=== PATIENT | male | born 1930 | race Two or more races ===

== ENCOUNTER → 2016-04-13 | Outpatient (CLI) | payer OTHER ==
[~2016-04-13] MED LIST: ALEN70TA55 PO; ASPI-231 PO; CHOL20002 PO; GEM600T OR; IBUP800T24 PO; MAGN500T17 PO; MULT-212 OR; MULT-281 OR; OXYB5TAB62 PO; [UNRECOGNIZED DRUG - CODE] PO
[2016-04-13 10:46] LABS: Urine RBC None Seen /hpf (0 - 3)
[2016-04-13 10:56] LABS: Basophils # (auto) 0 uL; Basophils % (auto) 0.9 % (0.0-2.0); Eosinophils # (auto) 0.2 uL; Eosinophils % (auto) 3.1 % (0.0-7.0); Hemoglobin 14.2 g/dL (13.5-17.5); Lymphocytes # (auto) 1.1 uL; Lymphocytes % (auto) 20.8 % (10.0-50.0); Mean Corpuscular Hemoglobin 28.8 pg (28.0-32.0); Mean Corpuscular Hgb Conc. 32.2 g/dL (32.0-36.0); Mean Corpuscular Volume 89.4 fL (80.0-100.0); Mean Platelet Volume 9.3 fL (7.4-10.4); Monocytes # (auto) 0.4 uL; Monocytes % (auto) 8.1 % (0.0-12.0); Neutrophils # (auto) 3.6 uL; Neutrophils % (auto) 67.1 % (37.0-80.0); Platelet Count (auto) 201 10^3/uL (140-450); White Blood Cell 5.3 10^3/uL (4.4-10.8)
[2016-04-13 11:38] LABS: Urine Bilirubin Negative (Negative); Urine Blood Negative /uL (Negative); Urine Color Yellow (Yellow); Urine Glucose Normal (Normal); Urine Hyaline Cast FEW /lpf (0 - 2); Urine Ketone Negative (Negative); Urine Mucus FEW (None Seen); Urine Nitrite Negative (Negative); Urine Squamous Epithelial Cell FEW /hpf (<5); Urine Urobilinogen Normal (Negative); Urine pH 5.5 (5.0-8.0)
[2016-04-13 11:40] LABS: Albumin 4.2 g/dL (3.4-5.0); BUN/Creatinine Ratio 17.9; Bilirubin, Total 0.7 mg/dL (0.2-1.0); Calcium 9.4 mg/dL (8.5-10.1); Potassium 4.7 mmol/L (3.5-5.1); Total Protein 7.4 g/dL (6.4-8.2)
== END | disposition home or self-care (01) ==
LOC: LAB 10:04
DX: E55.9 Vitamin D deficiency, unspecified (principal); E78.5 Hyperlipidemia, unspecified; E73.9 Lactose intolerance, unspecified
CPT/HCPCS: 36415; 80053; 80061; 81001; 82306; 83036; 84443; 85025

== ENCOUNTER → 2016-11-05 | Outpatient (CLI) | payer OTHER ==
[2016-11-05 10:13] LABS: Urine RBC None Seen /hpf (0 - 3)
[2016-11-05 10:39] LABS: Basophils # (auto) 0.1 uL; Eosinophils # (auto) 0.1 uL; Eosinophils % (auto) 3.1 % (0.0-7.0); Hematocrit 42.8 % (41.0-53.0); Hemoglobin 14.2 g/dL (13.5-17.5); Lymphocytes % (auto) 26.3 % (10.0-50.0); Mean Corpuscular Hemoglobin 29.4 pg (28.0-32.0); Mean Corpuscular Hgb Conc. 33.3 g/dL (32.0-36.0); Mean Corpuscular Volume 88.3 fL (80.0-100.0); Mean Platelet Volume 9.1 fL (7.4-10.4); Monocytes # (auto) 0.4 uL; Monocytes % (auto) 10.1 % (0.0-12.0); Neutrophils # (auto) 2.2 uL; Neutrophils % (auto) 58.5 % (37.0-80.0); Platelet Count (auto) 155 10^3/uL (140-450); Red Cell Distribution Width 14.9 % (11.6-16.0); White Blood Cell 3.8 10^3/uL (4.4-10.8)
[2016-11-05 10:49] LABS: Urine Bilirubin Negative (Negative); Urine Blood Negative /uL (Negative); Urine Color Yellow (Yellow); Urine Glucose Normal (Normal); Urine Ketone Negative (Negative); Urine Mucus FEW (None Seen); Urine Nitrite Negative (Negative); Urine Squamous Epithelial Cell FEW /hpf (<5); Urine pH 5.5 (5.0-8.0)
[2016-11-05 11:10] LABS: Albumin 3.8 g/dL (3.4-5.0); BUN/Creatinine Ratio 15.6; Bilirubin, Total 0.8 mg/dL (0.2-1.0); Calcium 9.1 mg/dL (8.5-10.1); Potassium 4.1 mmol/L (3.5-5.1)
[2016-11-08 10:00] LABS: Hepatitis B Surface Antibody Negative
== END | disposition home or self-care (01) ==
LOC: LAB 09:56
PROVIDERS: ATTEND Family Medicine
DX: Z11.59 Encounter for screening for other viral diseases (principal); E78.5 Hyperlipidemia, unspecified; E55.9 Vitamin D deficiency, unspecified
CPT/HCPCS: 36415; 80053; 80061; 81001; 82306; 84443; 85025; 86704; 86706; 86708; 86803; 87340

== ENCOUNTER 2017-01-10 09:08 | Day surgery (SDC) | payer OTHER ==
[2017-01-06 10:32] LABS: Basophils # (auto) 0.1 uL; Basophils % (auto) 1.8 % (0.0-2.0); Eosinophils # (auto) 0.1 uL; Eosinophils % (auto) 2.2 % (0.0-7.0); Hematocrit 46.8 % (41.0-53.0); Hemoglobin 15.7 g/dL (13.5-17.5); Lymphocytes # (auto) 1.3 uL; Lymphocytes % (auto) 23.6 % (10.0-50.0); Mean Corpuscular Hemoglobin 29.9 pg (28.0-32.0); Mean Corpuscular Hgb Conc. 33.5 g/dL (32.0-36.0); Mean Corpuscular Volume 89.3 fL (80.0-100.0); Mean Platelet Volume 8.5 fL (6.9-10.8); Monocytes # (auto) 0.4 uL; Monocytes % (auto) 8.2 % (0.0-12.0); Neutrophils # (auto) 3.5 uL; Neutrophils % (auto) 64.2 % (37.0-80.0); Platelet Count (auto) 143 10^3/uL (140-450); Red Cell Distribution Width 14.1 % (11.8-14.3); White Blood Cell 5.4 10^3/uL (4.4-10.8)
[2017-01-06 10:36] LABS: INR 1.03 (0.9-1.15); Partial Thromboplastin Time 26.1 sec (22.64-33.71); Prothrombin Time 11.2 sec (9.37-12.3)
[~2017-01-10] VITALS: Ht 162.6 cm; Wt 81.6 kg
[~2017-01-10 09:08] MED LIST changes: -GEM600T OR; -MAGN500T17 PO; +TRAZ50TA2 PO
[2017-01-10] MEDS ORDERED: SODIUM CHLORIDE LOCK 10 ML ONE (09:10)
[2017-01-10] MEDS ORDERED: LIDOCAINE VISCOUS 2% 15ML UD ONE (09:10)
[2017-01-10] MEDS ORDERED: diphenhdrAMINE HCL 50 MG/1 ML VL ONE (09:11)
[2017-01-10] MEDS: MIDAZOLAM HCL 5 MG/ML-1ML VIAL ONE ×2 (10:33→10:36)
[2017-01-10] MEDS: fentaNYL CITRATE 100 MCG/2 ML VL ONE ×2 (10:33→10:36)
[2017-01-10 11:41] VITALS: BP 126/81
== END 2017-01-10 11:42 | disposition home or self-care (01) ==
LOC: GI 09:08
PROVIDERS: ATTEND Internal Medicine Gastroenterology
DX: K44.9 Diaphragmatic hernia without obstruction or gangrene (principal); Z88.5 Allergy status to narcotic agent; E66.9 Obesity, unspecified; Z68.30 Body mass index [BMI] 30.0-30.9, adult; Z90.49 Acquired absence of other specified parts of digestive tract; D69.6 Thrombocytopenia, unspecified
CPT/HCPCS: 36415; 43248; 85025; 85610; 85730; J2250; J3010; J7030

== ENCOUNTER → 2017-01-19 | Outpatient (CLI) | payer OTHER | END | disposition home or self-care (01) | LOC: LAB 10:48 | PROVIDERS: ATTEND Family Medicine | DX: F03.90 Unspecified dementia, unspecified severity, without behavioral disturbance, psychotic disturbance, mood disturbance, and anxiety (principal); R19.7 Diarrhea, unspecified | CPT/HCPCS: 36415; 84443 ==

== ENCOUNTER 2017-03-14 08:24 | Day surgery (SDC) | payer OTHER ==
[2017-03-10 10:03] LABS: Basophils # (auto) 0.1 uL; Basophils % (auto) 1.1 % (0.0-2.0); Eosinophils # (auto) 0.2 uL; Eosinophils % (auto) 2.6 % (0.0-7.0); Hemoglobin 15.7 g/dL (13.5-17.5); Lymphocytes # (auto) 1.3 uL; Lymphocytes % (auto) 18.3 % (10.0-50.0); Mean Corpuscular Hemoglobin 29.3 pg (28.0-32.0); Mean Corpuscular Hgb Conc. 33.4 g/dL (32.0-36.0); Mean Corpuscular Volume 87.7 fL (80.0-100.0); Monocytes # (auto) 0.5 uL; Monocytes % (auto) 7.2 % (0.0-12.0); Neutrophils # (auto) 4.9 uL; Neutrophils % (auto) 70.8 % (37.0-80.0); Platelet Count (auto) 162 10^3/uL (140-450); Red Blood Cells 5.35 10^6/uL (4.5-5.90); White Blood Cell 6.9 10^3/uL (4.4-10.8)
[2017-03-10 10:13] LABS: INR 0.98 (0.9-1.15); Prothrombin Time 10.7 sec (9.37-12.3)
[~2017-03-14] VITALS: Ht 160 cm; Wt 86.2 kg
[2017-03-14] MEDS ORDERED: SODIUM CHLORIDE LOCK 10 ML ONE (08:48)
[2017-03-14] MEDS ORDERED: diphenhdrAMINE HCL 50 MG/1 ML VL ONE (08:49)
[2017-03-14] MEDS ORDERED: fentaNYL CITRATE 100 MCG/2 ML VL ONE (08:49)
[2017-03-14] MEDS ORDERED: MIDAZOLAM HCL 5 MG/ML-1ML VIAL ONE (08:49)
[2017-03-14 10:55] VITALS: BP 149/89
== END 2017-03-14 11:05 | disposition home or self-care (01) ==
LOC: GI 08:24
PROVIDERS: ATTEND Internal Medicine Gastroenterology
DX: K64.8 Other hemorrhoids (principal); K57.30 Diverticulosis of large intestine without perforation or abscess without bleeding; Z88.5 Allergy status to narcotic agent; E66.9 Obesity, unspecified; Z68.33 Body mass index [BMI] 33.0-33.9, adult; Z90.49 Acquired absence of other specified parts of digestive tract
CPT/HCPCS: 36415; 45380; 85025; 85610; 88305; J2250; J3010; J7030; 99152

== ENCOUNTER 2017-04-06 13:41 | Emergency (ER) | payer OTHER ==
[~2017-04-06] VITALS: Ht 160 cm; Wt 89.4 kg
[2017-04-06 16:30] VITALS: BP 132/82
== END 2017-04-06 16:52 | disposition home or self-care (01) ==
LOC: ER 13:41
DX: M79.671 Pain in right foot (principal); M79.89 Other specified soft tissue disorders; I10 Essential (primary) hypertension; Z88.6 Allergy status to analgesic agent; Z79.899 Other long term (current) drug therapy
CPT/HCPCS: 93971

== ENCOUNTER → 2017-04-19 | Outpatient (CLI) | payer OTHER ==
[2017-04-19 11:37] LABS: Albumin 3.5 g/dL (3.4-5.0); Bilirubin, Total 0.7 mg/dL (0.2-1.0); Calcium 8.6 mg/dL (8.5-10.1); Total Protein 6.8 g/dL (6.4-8.2); Uric Acid 7.1 mg/dL (3.5-7.2)
== END | disposition home or self-care (01) ==
LOC: LAB 11:00
PROVIDERS: ATTEND Family Medicine
DX: M10.071 Idiopathic gout, right ankle and foot (principal)
CPT/HCPCS: 36415; 80053; 84550

== ENCOUNTER → 2017-06-23 | Outpatient (CLI) | payer OTHER ==
[~2017-06-23] MED LIST changes: +BUPIVACAINE 0.25% INJ 50ML VIAL ONE; +LIDOCAINE 2% (LOCAL ANESTH.) PF 5ml SDV ONE; +methylPREDNISolone ACETATE 80 MG/ML VL ONE
== END | disposition home or self-care (01) ==
LOC: XY 10:10
PROVIDERS: ATTEND Orthopaedic Surgery Adult Reconstructive Orthopaedic Surgery
DX: M25.512 Pain in left shoulder (principal); M25.511 Pain in right shoulder; Z88.5 Allergy status to narcotic agent
CPT/HCPCS: 20610; 76000; J1040; J3490

== ENCOUNTER → 2017-08-29 | Outpatient (CLI) | payer OTHER ==
[~2017-08-29] MED LIST changes: -BUPIVACAINE 0.25% INJ 50ML VIAL ONE; -LIDOCAINE 2% (LOCAL ANESTH.) PF 5ml SDV ONE; -methylPREDNISolone ACETATE 80 MG/ML VL ONE
[2017-08-29 13:46] LABS: Free T3 2.91 pg/mL (2.3-4.2); Free T4 (Free Thyroxine) 0.98 ng/dL (0.89-1.76); T3 Total 1.06 ng/mL (0.60-1.81)
== END | disposition home or self-care (01) ==
LOC: LAB 11:38
PROVIDERS: ATTEND Family Medicine
DX: I10 Essential (primary) hypertension (principal); R94.6 Abnormal results of thyroid function studies; R93.8 Abnormal findings on diagnostic imaging of other specified body structures; E78.5 Hyperlipidemia, unspecified; Z79.899 Other long term (current) drug therapy
CPT/HCPCS: 36415; 84439; 84443; 84480; 84481

== ENCOUNTER → 2017-09-27 | Outpatient (CLI) | payer OTHER ==
[~2017-09-27] VITALS: Ht 167.6 cm; Wt 82.6 kg
[~2017-09-27] MED LIST changes: +ADENOSINE 69 MG in GIVE UN-DILUTED 0 ML IV STA
[2017-09-27 11:08] VITALS: BP 149/99
== END | disposition home or self-care (01) ==
LOC: XY 08:00
PROVIDERS: ATTEND Family Medicine
DX: Z01.818 Encounter for other preprocedural examination (principal); I10 Essential (primary) hypertension
CPT/HCPCS: 78452; 93017; A9500; J0153

== ENCOUNTER 2017-11-11 08:38 | Day surgery (SDC) | payer OTHER ==
[2017-11-08 12:45] LABS: Basophils # (auto) 0.1 uL; Basophils % (auto) 1.2 % (0.0-2.0); Eosinophils # (auto) 0.1 uL; Eosinophils % (auto) 2.4 % (0.0-7.0); Hematocrit 47.4 % (41.0-53.0); Hemoglobin 15.6 g/dL (13.5-17.5); Lymphocytes # (auto) 1.5 uL; Lymphocytes % (auto) 25.3 % (10.0-50.0); Mean Corpuscular Hemoglobin 30.2 pg (28.0-32.0); Mean Corpuscular Volume 91.5 fL (80.0-100.0); Monocytes # (auto) 0.6 uL; Monocytes % (auto) 9.3 % (0.0-12.0); Neutrophils # (auto) 3.7 uL; Neutrophils % (auto) 61.8 % (37.0-80.0); Platelet Count (auto) 126 10^3/uL (140-450); Red Blood Cells 5.18 10^6/uL (4.5-5.90); Red Cell Distribution Width 15.9 % (11.8-14.3)
[2017-11-08 12:59] LABS: Partial Thromboplastin Time 25.9 sec (23.78-33.04); Prothrombin Time 10.7 sec (9.27-12.13)
[~2017-11-11] VITALS: Ht 160 cm; Wt 86.2 kg
[~2017-11-11 08:38] MED LIST changes: -ADENOSINE 69 MG in GIVE UN-DILUTED 0 ML IV STA; +ALEN1TAB32 PO; -ALEN70TA55 PO; -IBUP800T24 PO; +OXYB5TAB24 PO; -OXYB5TAB62 PO
[2017-11-11] MEDS ORDERED: diphenhdrAMINE HCL 50 MG/1 ML VL ONE (09:24)
[2017-11-11] MEDS: fentaNYL CITRATE 100 MCG/2 ML VL ONE ×2 (09:47→09:51)
[2017-11-11] MEDS: MIDAZOLAM HCL 5 MG/ML-1ML VIAL ONE ×2 (09:47→09:51)
[2017-11-11 10:27] VITALS: BP 133/93
== END 2017-11-11 10:40 | disposition home or self-care (01) ==
LOC: GI 08:38
PROVIDERS: ATTEND Internal Medicine Gastroenterology
DX: R13.10 Dysphagia, unspecified (principal); E78.5 Hyperlipidemia, unspecified; E66.9 Obesity, unspecified; M17.10 Unilateral primary osteoarthritis, unspecified knee; Z90.49 Acquired absence of other specified parts of digestive tract; Z88.5 Allergy status to narcotic agent; Z98.890 Other specified postprocedural states; Z80.8 Family history of malignant neoplasm of other organs or systems; Z79.899 Other long term (current) drug therapy; Z79.82 Long term (current) use of aspirin
CPT/HCPCS: 36415; 43248; 85025; 85610; 85730; A6257; J2250; J3010; J7030

== ENCOUNTER 2017-11-28 06:13 | Inpatient (IN) | payer OTHER ==
[2017-11-08 12:43] LABS: Basophils # (auto) 0.1 uL; Basophils % (auto) 1.3 % (0.0-2.0); Eosinophils # (auto) 0.1 uL; Eosinophils % (auto) 2.3 % (0.0-7.0); Hematocrit 47.2 % (41.0-53.0); Hemoglobin 15.7 g/dL (13.5-17.5); Lymphocytes # (auto) 1.6 uL; Lymphocytes % (auto) 26.1 % (10.0-50.0); Mean Corpuscular Hemoglobin 30.7 pg (28.0-32.0); Mean Corpuscular Hgb Conc. 33.3 g/dL (32.0-36.0); Mean Corpuscular Volume 92.1 fL (80.0-100.0); Monocytes # (auto) 0.6 uL; Monocytes % (auto) 9.1 % (0.0-12.0); Neutrophils # (auto) 3.8 uL; Neutrophils % (auto) 61.2 % (37.0-80.0); Nucleated Red Blood Cells % 0.1 %; Platelet Count (auto) 126 10^3/uL (140-450); Red Blood Cells 5.12 10^6/uL (4.5-5.90); White Blood Cell 6.2 10^3/uL (4.4-10.8)
[2017-11-08 13:04] LABS: Prothrombin Time 10.7 sec (9.27-12.13)
[2017-11-08 13:28] LABS: Albumin 3.9 g/dL (3.4-5.0); Calcium 8.5 mg/dL (8.5-10.1); Potassium 3.8 mmol/L (3.5-5.1)
[2017-11-23 12:39] LABS: INR 1.01 (0.9-1.15); Partial Thromboplastin Time 26.2 sec (23.78-33.04); Prothrombin Time 10.8 sec (9.27-12.13)
[2017-11-23 12:46] LABS: Basophils # (auto) 0.1 uL; Basophils % (auto) 1.4 % (0.0-2.0); Eosinophils # (auto) 0.1 uL; Eosinophils % (auto) 2.1 % (0.0-7.0); Hemoglobin 14.9 g/dL (13.5-17.5); Lymphocytes # (auto) 1.3 uL; Lymphocytes % (auto) 23.2 % (10.0-50.0); Mean Corpuscular Hgb Conc. 33.2 g/dL (32.0-36.0); Mean Corpuscular Volume 90.4 fL (80.0-100.0); Monocytes # (auto) 0.5 uL; Monocytes % (auto) 8.5 % (0.0-12.0); Neutrophils # (auto) 3.6 uL; Neutrophils % (auto) 64.8 % (37.0-80.0); Platelet Count (auto) 140 10^3/uL (140-450); Red Blood Cells 4.97 10^6/uL (4.5-5.90); Red Cell Distribution Width 15.5 % (11.8-14.3); White Blood Cell 5.6 10^3/uL (4.4-10.8)
[2017-11-23 12:48] LABS: Urine Bacteria NONE SEEN /hpf (None Seen); Urine Blood Negative /uL (Negative); Urine Mucus FEW (None Seen); Urine WBC 1 /hpf (0 - 3)
[2017-11-23 13:31] LABS: Albumin 3.4 g/dL (3.4-5.0); BUN/Creatinine Ratio 14.6; Bilirubin, Total 0.6 mg/dL (0.2-1.0); Calcium 8.4 mg/dL (8.5-10.1); Potassium 4.2 mmol/L (3.5-5.1); Total Protein 6.3 g/dL (6.4-8.2)
[~2017-11-28] VITALS: Ht 160 cm; Wt 87.5 kg
[2017-11-28] MEDS ORDERED: SUCCINYLCHOLINE CHLORIDE 20 MG/ML 10ML VIAL IV ONE (06:44)
[2017-11-28] MEDS ORDERED: ceFAZolin 1GM/50ML 100 ML IV ONE (06:44)
[2017-11-28] MEDS ORDERED: LIDOCAINE 1% HCL (LOCAL ANESTH.) INJ 20ML MDV ONE (06:44)
[2017-11-28] MEDS ORDERED: PROPOFOL 10 MG/ML 20 ML IV ONE (06:55)
[2017-11-28] MEDS ORDERED: ONDANSETRON HCL 4 MG/2 ML VIAL ONE (06:55)
[2017-11-28] MEDS ORDERED: fentaNYL CITRATE 100 MCG/2 ML VL ONE (06:55)
[2017-11-28] MEDS ORDERED: SODIUM CHLORIDE LOCK 10 ML ONE (06:55)
[2017-11-28] MEDS ORDERED: ROCURONIUM 10MG/ML 10ML VIAL IV ONE (06:55)
[2017-11-28] MEDS ORDERED: ETOMIDATE (2MG/ML) 20ML VIAL IV ONE (06:55)
[2017-11-28] MEDS ORDERED: fentaNYL CITRATE 10 ML ONE (06:55)
[2017-11-28] MEDS ORDERED: MIDAZOLAM HCL 1MG/1ML-2 ML VIAL ONE (06:55)
[2017-11-28] MEDS ORDERED: MEPERIDINE HCL (50 MG/ML) 1 ML VIAL ONE (06:58)
[2017-11-28] MEDS ORDERED: BUPIVACAINE W/ EPINEPH 0.25% INJ 50ML MDV ONE (07:08)
[2017-11-28] MEDS ORDERED: TRANEXAMIC ACID 20 ML ONE (07:08)
[2017-11-28] MEDS ORDERED: KETOROLAC TROMETH 30 MG/ML 1ML VIAL ONE (07:10)
[2017-11-28] MEDS ORDERED: MORPHINE SULF(PF) 0.5MG/ML 10ML VIAL ONE (07:12)
[2017-11-28] MEDS ORDERED: ESMOLOL HCL (10MG/ML) 10 ML VIAL IV ONE (07:20)
[2017-11-28] MEDS ORDERED: GLYCOPYRROLATE 0.2 MG/ML 1ML VIAL ONE (08:27)
[2017-11-28] MEDS ORDERED: NEOSTIGMINE 1 MG/ML INJ (10mg/10ML VIAL) ONE (08:27)
[2017-11-28] MEDS ORDERED: KETOROLAC TROMETH 60MG/2ML VIAL IM ONE (08:27)
[2017-11-28] MEDS ORDERED: METOCLOPRAMIDE HCL 5MG/ml INJ 2ml VIAL IV ONE (09:15)
[2017-11-28] MEDS ORDERED: KETOROLAC TROMETH 30 MG/ML 1ML VIAL IV ONE (09:15)
[2017-11-28] MEDS ORDERED: HYDROmorphone HCL 2 MG/ML VL IV PRN (09:15)
[2017-11-28] MEDS ORDERED: VANCOMYCIN HCL 1000 MG VL ONE ×2 (10:17→10:18)
[2017-11-28] MEDS ORDERED: KETOROLAC TROMETH 30 MG/ML 1ML VIAL IV PRN (11:00)
[2017-11-28] MEDS ORDERED: MORPHINE SULFATE 4 MG/ML SYR/VIAL IV PRN (11:00)
[2017-11-28] MEDS ORDERED: ACETAMINOPHEN 325 MG TAB PO PRN (11:00)
[2017-11-28] MEDS: SODIUM CHLOR 0.9% PF (SALINE LOCK) 10ML VIAL/SYR IV SCH ×2 (15:02→21:43)
[2017-11-28] MEDS: ceFAZolin 1GM/50ML 50 ML IV SCH ×2 (15:12→21:43)
[2017-11-28] MEDS ORDERED: INFLUENZA QUAD 2018-2019 0.5 ML SYRG IM ONE (16:00)
[2017-11-28 17:05] VITALS: BP 119/81
[2017-11-28] MEDS: D5W/LACTATED RINGERS 1,000 ML IV SCH ×2 (17:07→20:48)
[2017-11-28] MEDS: CELECOXIB 100 MG CAP PO SCH (21:44)
[2017-11-28] MEDS: CHOLECALCIFEROL (VITD3) 1,000 UNIT TAB PO SCH (21:44)
[2017-11-28] MEDS: FATTY ACIDS PO SCH (21:45)
[2017-11-28] MEDS: OMEGA PO SCH (21:45)
[2017-11-28 22:00] VITALS: BP 128/93
[2017-11-28] MEDS ORDERED: traZODone HCL 50 MG TAB PO SCH (22:00)
[2017-11-28] MEDS ORDERED: OXYBUTYNIN CHL 5 MG TAB PO SCH (22:00)
[2017-11-28] MEDS ORDERED: OXYBUTYNIN CHLORIDE 5 MG PO SCH (22:00)
[2017-11-28] MEDS ORDERED: PATIENTS OWN MEDICATION (Trazodone Hcl 50 MG) PO SCH (22:00)
[2017-11-28] MEDS ORDERED: PATIENTS OWN MEDICATION (Cholecalciferol (Vitamin D3) 2,000 UNIT) PO SCH (22:00)
[2017-11-29] MEDS: D5W/LACTATED RINGERS 1,000 ML IV SCH (04:14)
[2017-11-29 05:51] VITALS: BP 118/69
[2017-11-29] MEDS: ceFAZolin 1GM/50ML 50 ML IV SCH (06:06)
[2017-11-29] MEDS: SODIUM CHLOR 0.9% PF (SALINE LOCK) 10ML VIAL/SYR IV SCH (06:06)
[2017-11-29 09:00] VITALS: BP 116/68
[2017-11-29] MEDS: FATTY ACIDS PO SCH (10:00)
[2017-11-29] MEDS ORDERED: ASPirin-EC 81 mg tab PO SCH (10:00)
[2017-11-29] MEDS ORDERED: MULTIPLE VITAMINS W/ MINERALS TAB PO SCH ×2 (10:00)
[2017-11-29] MEDS: OMEGA PO SCH (10:00)
[2017-11-29] MEDS: CELECOXIB 100 MG CAP PO SCH (10:10)
[2017-11-29] MEDS: CHOLECALCIFEROL (VITD3) 1,000 UNIT TAB PO SCH (10:11)
[2017-11-29 12:32] LABS: Basophils # (auto) 0 uL; Basophils % (auto) 0.3 % (0.0-2.0); Eosinophils # (auto) 0 uL; Eosinophils % (auto) 0.2 % (0.0-7.0); Hematocrit 39.2 % (41.0-53.0); Hemoglobin 13.1 g/dL (13.5-17.5); Lymphocytes # (auto) 0.9 uL; Lymphocytes % (auto) 8.5 % (10.0-50.0); Mean Corpuscular Hemoglobin 30.6 pg (28.0-32.0); Mean Corpuscular Hgb Conc. 33.5 g/dL (32.0-36.0); Mean Corpuscular Volume 91.4 fL (80.0-100.0); Monocytes # (auto) 1.2 uL; Monocytes % (auto) 11.4 % (0.0-12.0); Neutrophils # (auto) 8.3 uL; Neutrophils % (auto) 79.6 % (37.0-80.0); Nucleated Red Blood Cells % 0.1 %; Red Blood Cells 4.29 10^6/uL (4.5-5.90); Red Cell Distribution Width 15.5 % (11.8-14.3); White Blood Cell 10.4 10^3/uL (4.4-10.8)
[2017-11-29 12:37] VITALS: BP 116/68
[2017-11-29 12:54] LABS: BUN/Creatinine Ratio 20.8; Calcium 7.6 mg/dL (8.5-10.1); Potassium 4.4 mmol/L (3.5-5.1)
[2017-11-29 13:17] LABS: Platelet Count (auto) 115 10^3/uL (140-450)
== END 2017-11-29 14:30 | disposition home or self-care (01) | DRG 483 ==
LOC: SUR 06:13 → WEST WING 06:14
PROVIDERS: ADMIT Orthopaedic Surgery Adult Reconstructive Orthopaedic Surgery; ATTEND Internal Medicine
PROC: 0LS30ZZ Reposition Right Upper Arm Tendon, Open Approach (ICD-10-PCS; 2017-11-28)
PROC: 0RRJ00Z Replacement of Right Shoulder Joint with Reverse Ball and Socket Synthetic Substitute, Open Approach (ICD-10-PCS; principal; 2017-11-28 07:25)
DX: M75.101 Unspecified rotator cuff tear or rupture of right shoulder, not specified as traumatic (principal); M19.011 Primary osteoarthritis, right shoulder; I10 Essential (primary) hypertension; I25.10 Atherosclerotic heart disease of native coronary artery without angina pectoris; I48.91 Unspecified atrial fibrillation; K21.9 Gastro-esophageal reflux disease without esophagitis; Z79.899 Other long term (current) drug therapy; Z90.49 Acquired absence of other specified parts of digestive tract
CPT/HCPCS: 36415; 73030; 80048; 80053; 81001; 83735; 85025; 85610; 85730; 86850; 86900; 86901; 90674; A4565; J0330; J0690; J1885; J2001; J2250; J2405; J2704

== ENCOUNTER → 2018-05-22 | Outpatient (CLI) | payer OTHER | END | disposition home or self-care (01) | LOC: XY 10:05 | PROVIDERS: ATTEND Family Medicine | DX: R42 Dizziness and giddiness (principal); R01.1 Cardiac murmur, unspecified; W19.XXXA Unspecified fall, initial encounter | CPT/HCPCS: 93886 ==